=== PATIENT | female | born 1950 | race Two or more races ===

== ENCOUNTER → 2018-12-26 | Outpatient (CLI) | payer OTHER ==
[~2018-12-26] MED LIST: PROTONIX40 MG PO
== END | disposition home or self-care (01) ==
LOC: NUCLEAR 08:00
DX: M79.661 Pain in right lower leg (principal); M79.662 Pain in left lower leg

== ENCOUNTER 2018-12-28 09:21 | Outpatient (CLI) | payer OTHER | END 2018-12-28 09:24 | disposition home or self-care (01) | LOC: NUCLEAR 09:21 | DX: M79.662 Pain in left lower leg (principal); M79.661 Pain in right lower leg; I73.9 Peripheral vascular disease, unspecified ==

== ENCOUNTER 2021-08-18 10:03 | Outpatient (CLI) | payer OTHER | END 2021-08-18 10:13 | disposition home or self-care (01) | LOC: MAMO-SONO 10:03 | DX: Z12.31 Encounter for screening mammogram for malignant neoplasm of breast (principal) ==